=== PATIENT | female | born 1995 | race Two or more races ===

== ENCOUNTER → 2025-03-30 | Outpatient (CLI) | payer MEDICAID, SELFPAY ==
--- NOTE | 2025-03-30 09:19 | XR_ITS ---
Examination: Bilateral hands, 6 views. Technique: AP, Oblique, Lateral each hand total 6 views Date and time of exam: March 30, 2025 0920 hours INDICATIONS: Bilateral hand pain several months. FINDINGS: Mild juxta-articular bone demineralization No fracture or dislocation involving either hand No erosive or other significant arthritic change involving either hand IMPRESSION: No erosive or other significant arthritic change involving either hand
--- NOTE | 2025-03-30 09:19 | XR_ITS ---
Examination: Bilateral wrists 4 views Technique one AP lateral right and left wrist total 4 views Date and time: March 30, 2025 0925 hours INDICATIONS: Bilateral wrist pain months FINDINGS: Mild osteopenia. No fracture or dislocation involving either wrist No erosive or other significant arthritic change involving either wrist IMPRESSION: No erosive or other significant arthritic change involving either wrist
== END | disposition home or self-care (01) ==
PROVIDERS: PCP Emergency Medicine; Referring Provider Nurse Practitioner Gerontology; Visit Provider Nurse Practitioner Gerontology
DX: M25.532 Pain in left wrist (principal); M25.531 Pain in right wrist; M79.642 Pain in left hand; M79.641 Pain in right hand
CPT/HCPCS: 73100; 73130